=== PATIENT | male | born 1995 | race Caucasian/White ===

== ENCOUNTER 2018-02-18 11:59 | Emergency (ER) | payer SELFPAY ==
[2018-02-18 12:09] VITALS: BP 127/71
== END 2018-02-18 12:32 | disposition left against medical advice (07) ==
DX: Z53.21 Procedure and treatment not carried out due to patient leaving prior to being seen by health care provider (principal)

== ENCOUNTER 2018-05-09 02:58 | Emergency (ER) | payer OTHER, MEDICAID ==
[2018-05-09] MEDS ORDERED: IBUPROFEN 200 MG TAB PO ONE (03:46)
[2018-05-09] MEDS ORDERED: ACETAMINOPHEN 500 MG TAB PO ONE (03:46)
[2018-05-09 05:00] VITALS: BP 125/74
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
== END 2018-05-09 05:17 | disposition home or self-care (01) ==
LOC: EDUNIT#
DX: M25.522 Pain in left elbow (principal); R51 Headache; V49.88XA Car occupant (driver) (passenger) injured in other specified transport accidents, initial encounter; F10.129 Alcohol abuse with intoxication, unspecified; Y90.9 Presence of alcohol in blood, level not specified; S42.035 Nondisplaced fracture of lateral end of left clavicle